=== PATIENT | female | born 1970 | race Caucasian/White ===

== ENCOUNTER 2018-07-13 12:52 | Inpatient (IN) | payer MEDICARE, OTHER ==
[2018-07-13] MEDS ORDERED: ALBUTEROL NEBULIZED 2.5 MG/3 ML INHALATION PRN (16:07)
[2018-07-13] MEDS ORDERED: NALOXONE 0.4 MG/ML 1 ML VIAL IV PRN (16:13)
--- NOTE | 2018-07-13 16:25 | P.HPIM ---
History of Present Illness Patient is a pleasant 48-year-old female came in with complaints of severe retrosternal burning sensation after eating some odynophagia along with nausea patient is barely eating anything because of her nausea and abdominal pain patient is also company of epigastric abdominal pain right upper quadrant abdominal pain had abdominal pain radiates to the back. Patient's pain is mostly burning sensation and sharp in nature severe. Patient was recently admitted to [facility] where patient was evaluated for acute coronary syndromes was subsequently discharged home. Patient apparently was treated for oral thrush as well but although patient doesn't have any evidence of thrush now. Patient was a seen in [facility] and the patient is found to have low sodium as well. Her lipase is minimally elevated. EKG essentially within normal limits troponin is not elevated. Review of Systems REVIEW OF SYSTEMS: CONSTITUTIONAL: No fever, no malaise, no fatigue. HEENT: No recent visual problems or hearing problems. Denied any sore throat. CARDIOVASCULAR: No chest pain, orthopnea, PND, no palpitations, no syncope. PULMONARY: No shortness of breath, no cough, no hemoptysis. GASTROINTESTINAL: As mentioned in in HPI NEUROLOGICAL: No headaches, no weakness, no numbness. HEMATOLOGICAL: Denies any bleeding or petechiae. GENITOURINARY: Denies any burning micturition, frequency, or urgency. MUSCULOSKELETAL/RHEUMATOLOGICAL: Denies any joint pain, swelling, or any muscle pain. ENDOCRINE: Denies any polyuria or polydipsia. The rest of the 14-point review of systems is negative. Past Medical History Past Medical History: Asthma, COPD, GERD/Reflux, GI Bleed, Hypertension, Thyroid Disorder Additional Past Medical History / Comment(s): lung scarring;home 02 2 liters prn , lt eye cataract History of Any Multi-Drug Resistant Organisms: None Reported Past Surgical History: Section, Tonsillectomy, Tubal Ligation Additional Past Surgical History / Comment(s): 1989,1991; sinus surgery; right cataract repair Past Anesthesia/Blood Transfusion Reactions: No Reported Reaction Past Psychological History: Anxiety, Depression, Schizophrenia Additional Psychological History / Comment(s): pt stated she lives with her sister.uses cane as needed,currently weak and recent fall.also has o2 and nebulizer Smoking Status: Current every day smoker Past Alcohol Use History: Abuse, Daily Additional Past Alcohol Use History / Comment(s): started smoking at age 6 used to smoke 1 ppd now 6 cig per day. past etoh abuse,went to rehab 2014 and quit Past Drug Use History: Marijuana - Past Family History Father Family Medical History: Cancer Additional Family Medical History / Comment(s): LUNG Mother Family Medical History: Cancer, COPD, Hypertension Additional Family Medical History / Comment(s): heart disease, breast cancer Sister(s) Family Medical History: Cancer Additional Family Medical History / Comment(s): breast cancer Medications and Allergies Home Medications Medication Instructions Recorded Confirmed Type Primidone [Mysoline] 50 mg PO DAILY 02/08/15 07/13/18 History amLODIPine [Norvasc] 5 mg PO DAILY 02/08/15 07/13/18 History Ipratropium-Albuterol Nebulize 3 ml INHALATION RT-QID 07/13/15 07/13/18 History [Duoneb 0.5 mg-3 mg/3 ml Soln] Montelukast [Singulair] 10 mg PO HS 07/13/15 07/13/18 History Acetaminophen Tab [Tylenol Tab] 1,000 mg PO Q6HR PRN 07/13/18 07/13/18 History Albuterol Inhaler [Ventolin Hfa 1 - 2 puff INHALATION RT-Q6H PRN 07/13/18 History Inhaler] Citalopram Hydrobromide [CeleXA] 40 mg PO DAILY 07/13/18 07/13/18 History Levothyroxine Sodium [Synthroid] 100 mcg PO DAILY 07/13/18 07/13/18 History Lidocaine Viscous 2% [Xylocaine 15 ml MUCOUS MEM Q3H 07/13/18 07/13/18 History Viscous] Lisinopril [Zestril] 20 mg PO DAILY 07/13/18 07/13/18 History Magnesium Oxide [Mag-Ox] 400 mg PO DAILY 07/13/18 07/13/18 History Ondansetron Odt [Zofran Odt] 8 mg PO BID 07/13/18 07/13/18 History Pantoprazole Sodium [Protonix] 40 mg PO DAILY 07/13/18 07/13/18 History Primidone [Mysoline] 100 mg PO HS 07/13/18 07/13/18 History QUEtiapine [SEROquel] 400 mg PO BID@1800,2200 07/13/18 07/13/18 History predniSONE See Taper PO DAILY 07/13/18 07/13/18 History Allergies Allergy/AdvReac Type Severity Reaction Status Date / Time metronidazole [From Flagyl] Allergy Unknown Verified 07/13/18 15:50 Physical Exam Vitals: Vital Signs Temp Pulse Resp BP Pulse Ox 07/13/18 16:01 97.4 F L 70 15 130/84 97 PHYSICAL EXAMINATION: GENERAL: The patient is alert and oriented x3, not in any acute distress. Well developed, well nourished. HEENT: Pupils are round and equally reacting to light. EOMI. No scleral icterus. No conjunctival pallor. Normocephalic, atraumatic. No pharyngeal erythema. No thyromegaly. CARDIOVASCULAR: S1 and S2 present. No murmurs, rubs, or gallops. PULMONARY: Chest is clear to auscultation, no wheezing or crackles. ABDOMEN: Soft, mild epigastric abdominal tenderness mild upper quadrant abdominal tenderness no rebound or rigidity, Bergman's sign negative. MUSCULOSKELETAL: No joint swelling or deformity. EXTREMITIES: No cyanosis, clubbing, or pedal edema. NEUROLOGICAL: Gross neurological examination did not reveal any focal deficits. SKIN: No rashes. Assessment and Plan Plan: -Abdominal pain mostly secondary to peptic ulcer disease other differential being cholelithiasis. Patient doesn't have any fever I'll obtain ultrasound of the abdomen since her pain radiates to the back. Patient was recently ruled out acute coronary syndromes. Surgery was consulted patient will be started on Protonix. Because of odynophagia symptoms and recent oral thrush of also start her on flucanazole which will be discontinued if the patient doesn't have any fungal esophagitis and upper GI endoscopy. 1 hyponatremia probably secondary to poor peripheral intake continue with IV fluids and if that doesn't improve will further evaluate for other causes of hyponatremia . -Hypertension -COPD not in acute exacerbation counseling or peptic ulcer disease of discontinue her systemic steroids patient has been on systemic steroids for long period of time patient is on low-dose of steroids now. -Hypothyroidism -ST esophageal reflux disease -Schizophrenia/depression: Continue her home medications. -Continue nicotine use: Counseling was provided. history of marijuana use in the past history of all call abuse in the past 20 years ago
[2018-07-13] MEDS ORDERED: FLUCONAZOLE 100 MG TAB PO SCH (17:00)
[2018-07-13] MEDS: SODIUM CHLORIDE 0.9% 1,000 ML IV SCH (17:18)
[2018-07-13] MEDS: QUEtiapine 400 MG TAB PO SCH ×2 (18:01→21:20)
[2018-07-13] MEDS: ACETAMINOPHEN TAB 500 MG TAB PO PRN (18:01)
[2018-07-13] MEDS: IPRATROPIUM-ALBUTEROL 3 ML NEB INHALATION SCH (19:49)
--- NOTE | 2018-07-13 20:08 | US ---
EXAMINATION TYPE: US gallbladder DATE OF EXAM: 07/13/2018 COMPARISON: 08/09/2014 CLINICAL HISTORY: elevated liver enzymes. Vomiting. EXAM MEASUREMENTS: Liver Length: 16.7 cm Gallbladder Wall: 0.33 cm CBD: 0.40 cm Right Kidney: 9.0 x 3.6 x 3.3 cm Pancreas: Duct visualized measuring 0.18cm. Liver: wnl Gallbladder: Hypoechoic areas seen suggestive of sludge. Evidence for sonographic Bergman's sign: No CBD: wnl Right Kidney: wnl Appears to be sludge in the gallbladder. IMPRESSION: Echogenic bile. No gallstones or dilated ducts. This is a change compared to old exam.
[2018-07-13] MEDS: PRIMIDONE 50 MG TAB PO SCH (21:20)
[2018-07-13] MEDS: MONTELUKAST 10 MG TAB PO SCH (21:20)
[2018-07-13] MEDS: PANTOPRAZOLE 40 MG/10 ML VIAL IVP SCH (21:21)
[2018-07-14] MEDS: LEVOTHYROXINE 100 MCG TAB PO SCH (05:47)
[2018-07-14] MEDS: SODIUM CHLORIDE 0.9% 1,000 ML IV SCH ×3 (05:48→21:22)
[2018-07-14] MEDS: IPRATROPIUM-ALBUTEROL 3 ML NEB INHALATION SCH ×4 (07:11→19:20)
[2018-07-14 07:57] LABS: Anisocytosis Moderate; HCT 32.5 % (34.0-46.0); HGB 10.1 gm/dL (11.4-16.0); MCH 33.6 pg (25.0-35.0); MCHC 31.2 g/dL (31.0-37.0); MCV 107.9 fL (80.0-100.0); Macrocytosis Marked; Mean Platelet Volume 6.5; Platelet Count 399 k/uL (150-450); RBC 3.01 m/uL (3.80-5.40); RDW 20.5 % (11.5-15.5); WBC 6.8 k/uL (3.8-10.6)
[2018-07-14 08:10] LABS: Anion Gap 2 mmol/L; Blood Urea Nitrogen 9 mg/dL (7-17); Calcium 8.6 mg/dL (8.4-10.2); Carbon Dioxide 25 mmol/L (22-30); Chloride 111 mmol/L (98-107); Glucose 63 mg/dL (74-99); Potassium 4.4 mmol/L (3.5-5.1); Sodium 138 mmol/L (137-145)
[2018-07-14] MEDS: ACETAMINOPHEN TAB 500 MG TAB PO PRN ×2 (09:40→19:16)
[2018-07-14] MEDS: amLODIPine 5 MG TAB PO SCH (09:41)
[2018-07-14] MEDS: MAGNESIUM OXIDE 400 MG TAB PO SCH (09:42)
[2018-07-14] MEDS: PRIMIDONE 50 MG TAB PO SCH ×2 (09:43→21:33)
[2018-07-14] MEDS: PANTOPRAZOLE 40 MG/10 ML VIAL IVP SCH ×2 (09:43→21:32)
[2018-07-14] MEDS ORDERED: ACETAMINOPHEN IV (For NPO) 1,000 MG in EMPTY BAG 1 BAG IVPB PRN (10:02)
[2018-07-14] MEDS: CITALOPRAM HYDROBROMIDE 20 MG TAB PO SCH (11:00)
--- NOTE | 2018-07-14 12:40 | P.DS ---
Providers Date of admission: 07/13/18 15:17 Attending physician: Antonieta Mcclendon Consults: 07/13/18 16:11 Consult Physician Routine Consulting Provider: Erik Mohamud Consult Reason/Comments: gastritis/ cholelithiasis Do you want consulting provider notified?: Yes Placement Type Exists?: Yes Primary care physician: Stated None Hospital Course: Patient given epigastric abdominal pain possibly secondary to gastritis. Surgery was consulted for possible upper GI endoscopy patient gets an upper GI endoscopy depending on the results patient probably will be discharged today with the twice a day of proton pump inhibitor. I'm discontinued and prednisone. My suspicion is low for esophageal candidiasis because of which I will not start her on any antifungals. Patient doesn't have any old pressure at this time. Patient is complaining of chest pain which is [place] skeletal in nature asked her to use Tylenol for that. PHYSICAL EXAMINATION: GENERAL: The patient is alert and oriented x3, not in any acute distress. Well developed, well nourished. HEENT: Pupils are round and equally reacting to light. EOMI. No scleral icterus. No conjunctival pallor. Normocephalic, atraumatic. No pharyngeal erythema. No thyromegaly. CARDIOVASCULAR: S1 and S2 present. No murmurs, rubs, or gallops. PULMONARY: Chest is clear to auscultation, no wheezing or crackles. ABDOMEN: Soft, nontender, nondistended, normoactive bowel sounds. No palpable organomegaly. MUSCULOSKELETAL: No joint swelling or deformity. EXTREMITIES: No cyanosis, clubbing, or pedal edema. NEUROLOGICAL: Gross neurological examination did not reveal any focal deficits. SKIN: No rashes. Assessment and Plan Plan: -Abdominal pain mostly secondary to peptic ulcer disease ultrasound of the abdomen did not show any cholelithiasis or cholecystitis 1 hyponatremia hypervolemic hyponatremia which improved and facet present sodium is 138 -Hypertension -COPD not in acute exacerbation counseling or peptic ulcer disease of discontinue her systemic steroids -Hypothyroidism -ST esophageal reflux disease -Schizophrenia/depression: Continue her home medications. -Continue nicotine use: Counseling was provided. history of marijuana use in the past history of all call abuse in the past 20 years ago Plan - Discharge Summary Discharge Rx Participant: No New Discharge Prescriptions: Continue Primidone [Mysoline] 50 mg PO DAILY amLODIPine [Norvasc] 5 mg PO DAILY Montelukast [Singulair] 10 mg PO HS Ipratropium-Albuterol Nebulize [Duoneb 0.5 mg-3 mg/3 ml Soln] 3 ml INHALATION RT-QID Lidocaine Viscous 2% [Xylocaine Viscous] 15 ml MUCOUS MEM Q3H Albuterol Inhaler [Ventolin Hfa Inhaler] 1 - 2 puff INHALATION RT-Q6H PRN PRN Reason: Shortness Of Breath Acetaminophen Tab [Tylenol] 1,000 mg PO Q6HR PRN PRN Reason: Pain Or Fever > 100.5 QUEtiapine [SEROquel] 400 mg PO BID@1800,2200 Ondansetron Odt [Zofran ODT] 8 mg PO BID Magnesium Oxide [Mag-Ox] 400 mg PO DAILY Lisinopril [Zestril] 20 mg PO DAILY Primidone [Mysoline] 100 mg PO HS Levothyroxine Sodium [Synthroid] 100 mcg PO DAILY Citalopram Hydrobromide [CeleXA] 40 mg PO DAILY Changed Pantoprazole Sodium [Protonix] 40 mg PO BID #30 tablet.dr Discontinued predniSONE See Taper PO DAILY Discharge Medication List Primidone [Mysoline] 50 mg PO DAILY 02/08/15 [History] amLODIPine [Norvasc] 5 mg PO DAILY 02/08/15 [History] Ipratropium-Albuterol Nebulize [Duoneb 0.5 mg-3 mg/3 ml Soln] 3 ml INHALATION RT -QID 07/13/15 [History] Montelukast [Singulair] 10 mg PO HS 07/13/15 [History] Acetaminophen Tab [Tylenol] 1,000 mg PO Q6HR PRN 07/13/18 [History] Albuterol Inhaler [Ventolin Hfa Inhaler] 1 - 2 puff INHALATION RT-Q6H PRN [History] Citalopram Hydrobromide [CeleXA] 40 mg PO DAILY 07/13/18 [History] Levothyroxine Sodium [Synthroid] 100 mcg PO DAILY 07/13/18 [History] Lidocaine Viscous 2% [Xylocaine Viscous] 15 ml MUCOUS MEM Q3H 07/13/18 [History] Lisinopril [Zestril] 20 mg PO DAILY 07/13/18 [History] Magnesium Oxide [Mag-Ox] 400 mg PO DAILY 07/13/18 [History] Ondansetron Odt [Zofran ODT] 8 mg PO BID 07/13/18 [History] Primidone [Mysoline] 100 mg PO HS 07/13/18 [History] QUEtiapine [SEROquel] 400 mg PO BID@1800,2200 07/13/18 [History] Pantoprazole Sodium [Protonix] 40 mg PO BID #30 tablet. 07/14/18 [Rx] Discharge Disposition: HOME SELF-CARE
[2018-07-14 14:06] VITALS: BMI 18.8
--- NOTE | 2018-07-14 15:38 | P.GSCN ---
History of Present Illness Consult date: 07/14/18 Reason for Consult: GERD, nausea History of present illness: This a 48-year-old female who's had complaints of GERD and nausea. She states that she experiences some retrosternal burning when eating. She's also had some mild epigastric pain. Past Medical History Past Medical History: Asthma, COPD, GERD/Reflux, GI Bleed, Hypertension, Thyroid Disorder Additional Past Medical History / Comment(s): lung scarring;home 02 2 liters prn , lt eye cataract History of Any Multi-Drug Resistant Organisms: None Reported Past Surgical History: Section, Tonsillectomy, Tubal Ligation Additional Past Surgical History / Comment(s): 1989,1991; sinus surgery; right cataract repair Past Anesthesia/Blood Transfusion Reactions: No Reported Reaction Past Psychological History: Anxiety, Depression, Schizophrenia Additional Psychological History / Comment(s): pt stated she lives with her sister.uses cane as needed,currently weak and recent fall.also has o2 and nebulizer Smoking Status: Current every day smoker Past Alcohol Use History: Abuse, Daily Additional Past Alcohol Use History / Comment(s): started smoking at age 6 used to smoke 1 ppd now 6 cig per day. past etoh abuse,went to rehab 2014 and quit Past Drug Use History: Marijuana - Past Family History Father Family Medical History: Cancer Additional Family Medical History / Comment(s): LUNG Mother Family Medical History: Cancer, COPD, Hypertension Additional Family Medical History / Comment(s): heart disease, breast cancer Sister(s) Family Medical History: Cancer Additional Family Medical History / Comment(s): breast cancer Medications and Allergies Home Medications Medication Instructions Recorded Confirmed Type Primidone [Mysoline] 50 mg PO DAILY 02/08/15 07/13/18 History amLODIPine [Norvasc] 5 mg PO DAILY 02/08/15 07/13/18 History Ipratropium-Albuterol Nebulize 3 ml INHALATION RT-QID 07/13/15 07/13/18 History [Duoneb 0.5 mg-3 mg/3 ml Soln] Montelukast [Singulair] 10 mg PO HS 07/13/15 07/13/18 History Acetaminophen Tab [Tylenol] 1,000 mg PO Q6HR PRN 07/13/18 07/13/18 History Albuterol Inhaler [Ventolin Hfa 1 - 2 puff INHALATION RT-Q6H PRN 07/13/18 History Inhaler] Citalopram Hydrobromide [CeleXA] 40 mg PO DAILY 07/13/18 07/13/18 History Levothyroxine Sodium [Synthroid] 100 mcg PO DAILY 07/13/18 07/13/18 History Lidocaine Viscous 2% [Xylocaine 15 ml MUCOUS MEM Q3H 07/13/18 07/13/18 History Viscous] Lisinopril [Zestril] 20 mg PO DAILY 07/13/18 07/13/18 History Magnesium Oxide [Mag-Ox] 400 mg PO DAILY 07/13/18 07/13/18 History Ondansetron Odt [Zofran ODT] 8 mg PO BID 07/13/18 07/13/18 History Primidone [Mysoline] 100 mg PO HS 07/13/18 07/13/18 History QUEtiapine [SEROquel] 400 mg PO BID@1800,2200 07/13/18 07/13/18 History Pantoprazole Sodium [Protonix] 40 mg PO BID #30 tablet. 07/14/18 Rx Allergies Allergy/AdvReac Type Severity Reaction Status Date / Time metronidazole [From Flagyl] Allergy Unknown Verified 07/13/18 15:50 Surgical - Exam Vital Signs Temp Pulse Resp BP Pulse Ox 97.4 F L 70 15 130/84 97 07/13/18 16:01 07/13/18 16:01 07/13/18 16:01 07/13/18 16:01 07/13/18 16:01 - General well developed, no distress - Eyes PERRL - ENT normal pinna - Neck no masses - Respiratory normal expansion - Cardiovascular Rhythm: regular - Abdomen Mild epigastric discomfort Abdomen: soft Results - Labs 07/14/18 07:20 07/14/18 07:20 Abnormal Lab Results - Last 24 Hours (Table) 07/14/18 07/14/18 Range/Units 07:20 07:20 RBC 3.01 L (3.80-5.40) m/uL Hgb 10.1 L (11.4-16.0) gm/dL Hct 32.5 L (34.0-46.0) % MCV 107.9 H (80.0-100.0) fL RDW 20.5 H (11.5-15.5) % Chloride 111 H (98-107) mmol/L Glucose 63 L (74-99) mg/dL Diabetes panel 07/14/18 Range/Units 07:20 Sodium 138 (137-145) mmol/L Potassium 4.4 (3.5-5.1) mmol/L Chloride 111 H (98-107) mmol/L Carbon Dioxide 25 (22-30) mmol/L BUN 9 (7-17) mg/dL Creatinine 0.69 (0.52-1.04) mg/dL Glucose 63 L (74-99) mg/dL Calcium 8.6 (8.4-10.2) mg/dL Calcium panel 07/14/18 Range/Units 07:20 Calcium 8.6 (8.4-10.2) mg/dL Pituitary panel 07/14/18 Range/Units 07:20 Sodium 138 (137-145) mmol/L Potassium 4.4 (3.5-5.1) mmol/L Chloride 111 H (98-107) mmol/L Carbon Dioxide 25 (22-30) mmol/L BUN 9 (7-17) mg/dL Creatinine 0.69 (0.52-1.04) mg/dL Glucose 63 L (74-99) mg/dL Calcium 8.6 (8.4-10.2) mg/dL Adrenal panel 07/14/18 Range/Units 07:20 Sodium 138 (137-145) mmol/L Potassium 4.4 (3.5-5.1) mmol/L Chloride 111 H (98-107) mmol/L Carbon Dioxide 25 (22-30) mmol/L BUN 9 (7-17) mg/dL Creatinine 0.69 (0.52-1.04) mg/dL Glucose 63 L (74-99) mg/dL Calcium 8.6 (8.4-10.2) mg/dL Assessment and Plan Assessment: GERD Epigastric pain Patient was scheduled for EGD in the a.m. We will schedule for a HIDA scan.
[2018-07-14] MEDS: QUEtiapine 400 MG TAB PO SCH ×2 (18:26→21:22)
[2018-07-14] MEDS ORDERED: ALPRAZolam 0.25 MG TAB PO PRN (21:29)
[2018-07-14] MEDS: MONTELUKAST 10 MG TAB PO SCH (21:32)
--- NOTE | 2018-07-14 22:43 | NM ---
EXAMINATION TYPE: NM hepatobiliary w CCK DATE OF EXAM: 07/14/2018 COMPARISON: Ultrasound gallbladder 07/13/2018 HISTORY: Elevated liver enzymes, vomiting TECHNIQUE: After the intravenous administration of 4.9 mCi Tc 99m Mebrofenin hepatobiliary scintigrap hy is performed. Immediate images post injection. FINDINGS: There is satisfactory initial accumulation of tracer by the liver. The gallbladder is visualized wit hin 7 minutes. The small bowel activity is noted within approximately 60 minutes. At one hour CCK was administered, patient was injected with 1.0 mcg of Kinevac, and gallbladder eject ion fraction is calculated at 70 %, in the normal range. Therefore there is no scintigraphic evidenc e of cystic or common bile duct obstruction to suggest acute cholecystitis or gallbladder dyskinesia. IMPRESSION: 1. Normal hepatobiliary transport and gallbladder ejection fraction. 2. However, at times during the study there was evidence of bile refluxing into the stomach. Noted.
[2018-07-14] MEDS: LISINOPRIL 20 MG TAB PO SCH (22:44)
[2018-07-14] MEDS: MELATONIN 3 MG TABLET PO SCH (22:44)
[2018-07-15] MEDS: IPRATROPIUM-ALBUTEROL 3 ML NEB INHALATION SCH ×4 (07:13→20:07)
[2018-07-15] MEDS: ONDANSETRON 4 MG/2 ML VIAL IVP PRN ×2 (07:51→14:12)
[2018-07-15] MEDS: PANTOPRAZOLE 40 MG/10 ML VIAL IVP SCH ×2 (07:54→20:59)
[2018-07-15] MEDS: amLODIPine 5 MG TAB PO SCH (07:55)
[2018-07-15] MEDS: LISINOPRIL 20 MG TAB PO SCH (07:55)
[2018-07-15] MEDS: LEVOTHYROXINE 100 MCG TAB PO SCH (07:55)
--- NOTE | 2018-07-15 10:24 | P.DS ---
Providers Date of admission: 07/13/18 15:17 Attending physician: Antonieta Mcclendon Consults: 07/13/18 16:11 Consult Physician Routine Consulting Provider: Erik Mohamud Consult Reason/Comments: gastritis/ cholelithiasis Do you want consulting provider notified?: Yes Placement Type Exists?: Yes Primary care physician: Stated None Hospital Course: Patient will be discharged after upper GI endoscopy unless to see him significant abnormality and upper GI endoscopy which I'm not anticipating. Please refer to my dictation of discharge summary from yesterday. PHYSICAL EXAMINATION: GENERAL: The patient is alert and oriented x3, not in any acute distress. Well developed, well nourished. HEENT: Pupils are round and equally reacting to light. EOMI. No scleral icterus. No conjunctival pallor. Normocephalic, atraumatic. No pharyngeal erythema. No thyromegaly. CARDIOVASCULAR: S1 and S2 present. No murmurs, rubs, or gallops. PULMONARY: Chest is clear to auscultation, no wheezing or crackles. ABDOMEN: Soft, nontender, nondistended, normoactive bowel sounds. No palpable organomegaly. MUSCULOSKELETAL: No joint swelling or deformity. EXTREMITIES: No cyanosis, clubbing, or pedal edema. NEUROLOGICAL: Gross neurological examination did not reveal any focal deficits. SKIN: No rashes. Plan - Discharge Summary Discharge Rx Participant: No New Discharge Prescriptions: Continue Primidone [Mysoline] 50 mg PO DAILY amLODIPine [Norvasc] 5 mg PO DAILY Montelukast [Singulair] 10 mg PO HS Ipratropium-Albuterol Nebulize [Duoneb 0.5 mg-3 mg/3 ml Soln] 3 ml INHALATION RT-QID Lidocaine Viscous 2% [Xylocaine Viscous] 15 ml MUCOUS MEM Q3H Albuterol Inhaler [Ventolin Hfa Inhaler] 1 - 2 puff INHALATION RT-Q6H PRN PRN Reason: Shortness Of Breath Acetaminophen Tab [Tylenol] 1,000 mg PO Q6HR PRN PRN Reason: Pain Or Fever > 100.5 QUEtiapine [SEROquel] 400 mg PO BID@1800,2200 Ondansetron Odt [Zofran ODT] 8 mg PO BID Magnesium Oxide [Mag-Ox] 400 mg PO DAILY Lisinopril [Zestril] 20 mg PO DAILY Primidone [Mysoline] 100 mg PO HS Levothyroxine Sodium [Synthroid] 100 mcg PO DAILY Citalopram Hydrobromide [CeleXA] 40 mg PO DAILY Changed Pantoprazole Sodium [Protonix] 40 mg PO BID #30 tablet. Discontinued predniSONE See Taper PO DAILY Discharge Medication List Primidone [Mysoline] 50 mg PO DAILY 02/08/15 [History] amLODIPine [Norvasc] 5 mg PO DAILY 02/08/15 [History] Ipratropium-Albuterol Nebulize [Duoneb 0.5 mg-3 mg/3 ml Soln] 3 ml INHALATION RT -QID 07/13/15 [History] Montelukast [Singulair] 10 mg PO HS 07/13/15 [History] Acetaminophen Tab [Tylenol] 1,000 mg PO Q6HR PRN 07/13/18 [History] Albuterol Inhaler [Ventolin Hfa Inhaler] 1 - 2 puff INHALATION RT-Q6H PRN [History] Citalopram Hydrobromide [CeleXA] 40 mg PO DAILY 07/13/18 [History] Levothyroxine Sodium [Synthroid] 100 mcg PO DAILY 07/13/18 [History] Lidocaine Viscous 2% [Xylocaine Viscous] 15 ml MUCOUS MEM Q3H 07/13/18 [History] Lisinopril [Zestril] 20 mg PO DAILY 07/13/18 [History] Magnesium Oxide [Mag-Ox] 400 mg PO DAILY 07/13/18 [History] Ondansetron Odt [Zofran ODT] 8 mg PO BID 07/13/18 [History] Primidone [Mysoline] 100 mg PO HS 07/13/18 [History] QUEtiapine [SEROquel] 400 mg PO BID@1800,2200 07/13/18 [History] Pantoprazole Sodium [Protonix] 40 mg PO BID #30 tablet. 07/14/18 [Rx] Discharge Disposition: HOME SELF-CARE
--- NOTE | 2018-07-15 11:00 | P.PN ---
Progress Note - Text Progress Note Date: 07/15/18 48-year-old female sitting up in bed scheduled today for an EGD hydroscan complete EF 70%. Patient reports experiencing hipcups. Appears in no acute distress. We'll await the finding of the EGD. Anticipate discharge no acute findings The above impression and plan of care have been discussed and directed by signing physician. Hilda Cordero nurse practitioner acting as scribe for signing physician.
[2018-07-15] MEDS: SODIUM CHLORIDE 0.9% 1,000 ML IV SCH ×2 (12:24→14:14)
[2018-07-15] MEDS ORDERED: LIDOCAINE 1% INJ 10MG/ML (20 ML MDV) ONE (13:23)
[2018-07-15] MEDS ORDERED: PROPOFOL 10 MG/ML 20 ML VIAL IV ONE (13:23)
[2018-07-15] MEDS ORDERED: IV FLUID CONTINUATION 1,000 ML IV ONE (13:36)
--- NOTE | 2018-07-15 13:37 | P.OP ---
Date of Procedure: 07/15/18 Preoperative Diagnosis: GERD, nausea Postoperative Diagnosis: Mild antral gastritis Small hiatal hernia [place] esophagitis Procedure(s) Performed: EGD Anesthesia: MAC Surgeon: Erik Mohamud Pathology: other (Antrum, esophagus) Condition: stable Disposition: PACU Description of Procedure: The patient's placed on the endoscopy table in the lateral position. She received IV sedation. The gastroscope placed oropharynx passed in this esophagus and into the stomach. Scope was then placed through the pylorus. The first and second portion duodenum appeared normal. Scope was then brought back and the antrum and this was minimal inflamed. A biopsies performed. The scope was then retroflexed the patient had a small hiatal hernia. The GE junction was at 38 cm. The entire esophagus appeared to have a [place] esophagitis appearance. A biopsy esophagus was performed. Scope was withdrawn for patient.
[2018-07-15] MEDS ORDERED: NYSTATIN 100,000 UNIT/ML SUSP 500,000 UNIT/5 ML CUP PO SCH (13:45)
[2018-07-15] MEDS: CITALOPRAM HYDROBROMIDE 20 MG TAB PO SCH (14:37)
[2018-07-15] MEDS: MAGNESIUM OXIDE 400 MG TAB PO SCH (14:37)
[2018-07-15] MEDS: PRIMIDONE 50 MG TAB PO SCH ×2 (14:37→20:59)
[2018-07-15] MEDS ORDERED: hydrALAZINE HCL 25 MG TAB PO PRN (14:43)
[2018-07-15] MEDS: ITRACONAZOLE ORAL SUSP 1,500 MG/150 ML BOTTLE PO SCH (15:28)
[2018-07-15] MEDS: ACETAMINOPHEN TAB 500 MG TAB PO PRN (17:20)
[2018-07-15] MEDS: QUEtiapine 400 MG TAB PO SCH ×2 (17:20→21:02)
[2018-07-15] MEDS: MELATONIN 3 MG TABLET PO SCH (20:58)
[2018-07-15] MEDS: MONTELUKAST 10 MG TAB PO SCH (20:58)
[2018-07-16] MEDS: SODIUM CHLORIDE 0.9% 1,000 ML IV SCH (05:24)
[2018-07-16 05:57] VITALS: RESP 18; TEMP 98
[2018-07-16] MEDS: LEVOTHYROXINE 100 MCG TAB PO SCH (06:02)
[2018-07-16] MEDS: ACETAMINOPHEN TAB 500 MG TAB PO PRN (06:58)
[2018-07-16] MEDS: IPRATROPIUM-ALBUTEROL 3 ML NEB INHALATION SCH (07:01)
[2018-07-16 08:13] VITALS: BP 134/79; PULSE 102
[2018-07-16] MEDS: ITRACONAZOLE ORAL SUSP 1,500 MG/150 ML BOTTLE PO SCH (08:19)
[2018-07-16] MEDS: PANTOPRAZOLE 40 MG/10 ML VIAL IVP SCH (08:19)
[2018-07-16] MEDS: amLODIPine 5 MG TAB PO SCH (08:19)
[2018-07-16] MEDS: CITALOPRAM HYDROBROMIDE 20 MG TAB PO SCH (08:20)
[2018-07-16] MEDS: MAGNESIUM OXIDE 400 MG TAB PO SCH (08:20)
[2018-07-16] MEDS: LISINOPRIL 20 MG TAB PO SCH (08:20)
[2018-07-16] MEDS: PRIMIDONE 50 MG TAB PO SCH (08:20)
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
--- NOTE | 2018-07-16 12:01 | P.PN ---
Progress Note - Text Progress Note Date: 07/16/18 48-year-old female who had an EGD done yesterday by Dr. sands the results reviewed with the patient. Findings Myrna esophagitis. Patient states since starting the medication there is a noted improvement. Surgical perspective patient is felt to be appropriate for discharge will see patient in a follow- up visit in the office The above impression and plan of care have been discussed and directed by signing physician. Hilda Cordero nurse practitioner acting as scribe for signing physician.
== END 2018-07-16 14:54 | disposition home or self-care (01) | DRG 369 ==
LOC: 5MS5E 15:17
PROVIDERS: ADMIT Hospitalist; ATTEND Hospitalist
PROC: 0DB78ZX Excision of Stomach, Pylorus, Via Natural or Artificial Opening Endoscopic, Diagnostic (ICD-10-PCS; principal; 2018-07-15 07:30)
DX: B37.81 Candidal esophagitis (principal); E87.1 Hypo-osmolality and hyponatremia; E03.9 Hypothyroidism, unspecified; E87.70 Fluid overload, unspecified; F17.200 Nicotine dependence, unspecified, uncomplicated; F20.9 Schizophrenia, unspecified; F32.9 Major depressive disorder, single episode, unspecified; F41.9 Anxiety disorder, unspecified; I10 Essential (primary) hypertension; J44.9 Chronic obstructive pulmonary disease, unspecified; K21.0 Gastro-esophageal reflux disease with esophagitis; K29.60 Other gastritis without bleeding; K44.9 Diaphragmatic hernia without obstruction or gangrene; Z79.899 Other long term (current) drug therapy; Z80.3 Family history of malignant neoplasm of breast; Z82.49 Family history of ischemic heart disease and other diseases of the circulatory system; Z82.5 Family history of asthma and other chronic lower respiratory diseases; Z79.890 Hormone replacement therapy; Z88.8 Allergy status to other drugs, medicaments and biological substances; Z71.6 Tobacco abuse counseling; Z98.51 Tubal ligation status; Z98.41 Cataract extraction status, right eye
CPT/HCPCS: 43239; 76705; 78227; 80048; 85027; 88305; 88312; 88341; 88342; 93005; 94640

== ENCOUNTER 2018-08-31 10:13 | Day surgery (SDC) | payer MEDICARE, OTHER ==
[2018-08-28 10:36] VITALS: BMI 19.7
[~2018-08-31 10:13] MED LIST: LACTATED RINGERS 1,000 ML IV SCH
[2018-08-31 10:28] VITALS: TEMP 99
[2018-08-31] MEDS ORDERED: ALBUTEROL NEBULIZED 2.5 MG/3 ML INHALATION STA (10:32)
[2018-08-31] MEDS ORDERED: LIDOCAINE 1% 20 ML VIAL (10MG/ML) FOR IV START INTRADERMA ONE (10:55)
[2018-08-31] MEDS ORDERED: ENALAPRILAT 1.25 MG/ML 1 ML VIAL IVP ONE (10:58)
[2018-08-31 11:05] VITALS: RESP 20
[2018-08-31] MEDS ORDERED: PROPOFOL 10 MG/ML 20 ML VIAL IV ONE (11:21)
[2018-08-31] MEDS ORDERED: LIDOCAINE 1% INJ 10MG/ML (20 ML MDV) ONE (11:21)
--- NOTE | 2018-08-31 11:23 | P.GSHP ---
History of Present Illness H&P Date: 08/31/18 GERD Past Medical History Past Medical History: Asthma, COPD, GERD/Reflux, GI Bleed, Hypertension, Thyroid Disorder Additional Past Medical History / Comment(s): lung scarring;home 02 2 liters prn , lt eye cataract History of Any Multi-Drug Resistant Organisms: None Reported Past Surgical History: Section, Tonsillectomy, Tubal Ligation Additional Past Surgical History / Comment(s): sinus surgery; right cataract repair Past Anesthesia/Blood Transfusion Reactions: No Reported Reaction Smoking Status: Current every day smoker - Past Family History Father Family Medical History: Cancer Additional Family Medical History / Comment(s): LUNG Mother Family Medical History: Cancer, COPD, Hypertension Additional Family Medical History / Comment(s): heart disease, breast cancer Sister(s) Family Medical History: Cancer Additional Family Medical History / Comment(s): breast cancer Medications and Allergies Home Medications Medication Instructions Recorded Confirmed Type Primidone [Mysoline] 50 mg PO DAILY 02/08/15 08/28/18 History amLODIPine [Norvasc] 5 mg PO DAILY 02/08/15 08/28/18 History Ipratropium-Albuterol Nebulize 3 ml INHALATION RT-QID PRN 07/13/15 08/28/18 History [Duoneb 0.5 mg-3 mg/3 ml Soln] Montelukast [Singulair] 10 mg PO HS PRN 07/13/15 08/28/18 History Albuterol Inhaler [Ventolin Hfa 1 - 2 puff INHALATION RT-Q6H PRN 07/13/18 History Inhaler] Citalopram Hydrobromide [CeleXA] 40 mg PO DAILY 07/13/18 08/28/18 History Levothyroxine Sodium [Synthroid] 100 mcg PO DAILY 07/13/18 08/28/18 History Magnesium Oxide [Mag-Ox] 400 mg PO DAILY 07/13/18 08/28/18 History Primidone [Mysoline] 100 mg PO HS 07/13/18 08/28/18 History QUEtiapine [SEROquel] 400 mg PO BID@1800,2200 07/13/18 08/28/18 History Pantoprazole Sodium [Protonix] 40 mg PO DAILY 08/20/18 08/28/18 History Acetaminophen [Tylenol Extra 500 mg PO Q4H PRN 08/28/18 08/28/18 History Strength] Folic Acid 0.8 mg PO DAILY 08/28/18 08/28/18 History Multivitamins, Thera [Multivitamin 1 tab PO DAILY 08/28/18 08/28/18 History (formulary)] levETIRAcetam [Keppra] 500 mg PO TID 08/28/18 08/28/18 History Allergies Allergy/AdvReac Type Severity Reaction Status Date / Time metronidazole [From Flagyl] Allergy Dyspnea, Verified 08/31/18 10:39 [facility] Surgical - Exam Vital Signs Temp Pulse Resp BP Pulse Ox 99.0 F 103 H 22 202/119 92 L 08/31/18 10:24 08/31/18 10:24 08/31/18 10:24 08/31/18 10:24 08/31/18 10:24 - General well developed, no distress - Eyes PERRL - ENT normal pinna - Neck no masses - Respiratory normal expansion - Cardiovascular Rhythm: regular - Abdomen Abdomen: soft, non tender Assessment and Plan Assessment: GERD. We'll perform EGD.
--- NOTE | 2018-08-31 11:30 | P.OP ---
Date of Procedure: 08/31/18 Preoperative Diagnosis: GERD Postoperative Diagnosis: Antral gastritis Hiatal hernia Esophagitis Procedure(s) Performed: EGD Anesthesia: MAC Surgeon: Erik Mohamud Pathology: other (Antrum, esophagus) Condition: stable Disposition: PACU Description of Procedure: The patient's placed on the endoscopy table in the lateral position. She received IV sedation. The gastroscope placed oropharynx and passed in the esophagus and stomach. Scope then placed through the pylorus. The first and second portion of the duodenum appeared normal. Scope was then brought back the antrum this appeared mildly inflamed. A biopsies performed. The scope was then retroflexed and remainder stomach appeared normal. There was a hiatal hernia visualized. The GE junction was at 38 cm. The distal esophagus appeared mildly inflamed a biopsies performed. The proximal esophagus. Normal. Scope was withdrawn for patient.
[2018-08-31 12:01] VITALS: PULSE 89
[2018-08-31 12:38] VITALS: BP 169/101
== END 2018-08-31 12:46 | disposition home or self-care (01) ==
LOC: ORWHC2ENDO 10:13
PROVIDERS: ATTEND Surgery
DX: K31.9 Disease of stomach and duodenum, unspecified (principal); K44.9 Diaphragmatic hernia without obstruction or gangrene; K21.0 Gastro-esophageal reflux disease with esophagitis; J44.9 Chronic obstructive pulmonary disease, unspecified; I10 Essential (primary) hypertension; E07.9 Disorder of thyroid, unspecified; F41.9 Anxiety disorder, unspecified; F32.9 Major depressive disorder, single episode, unspecified; F20.9 Schizophrenia, unspecified; F17.210 Nicotine dependence, cigarettes, uncomplicated; Z99.81 Dependence on supplemental oxygen; Z79.890 Hormone replacement therapy; Z79.899 Other long term (current) drug therapy; Z88.8 Allergy status to other drugs, medicaments and biological substances; Z98.51 Tubal ligation status; Z87.19 Personal history of other diseases of the digestive system
CPT/HCPCS: 94640; 88305; 43239; J2001; J2704

== ENCOUNTER → 2021-09-10 | Outpatient (CLI) | payer MEDICARE, OTHER ==
--- NOTE | 2021-09-11 02:52 | MR ---
EXAMINATION TYPE: MR brain wo/w con DATE OF EXAM: 09/10/2021 COMPARISON: None HISTORY: Repeated falls. CONTRAST: Standard multiplanar, multisequence MRI departmental protocol utilizing 4.5 mL intravenous gadolinium contrast. Ventricles have fairly normal size. There is no mass effect nor midline shift. There is no sign of in tracranial hemorrhage. Diffusion images show no sign of an acute infarct. Brainstem is intact. Corpus callosum is intact. Croft-white matter structures have fairly normal signa l pattern. There is no sign of cerebral edema. There is no evidence of orbital mass. Sella turcica ap pears normal. There is no evidence of posterior fossa mass. Cerebellum appears normal. There is no ev idence of cerebellopontine angle mass. IMPRESSION: Negative MR scan of the brain. I do not see a cause for the patient's symptoms.
== END | disposition home or self-care (01) ==
LOC: RADMRIMAIN 18:24
PROVIDERS: ATTEND Nurse Practitioner Family
DX: R29.6 Repeated falls (principal)
CPT/HCPCS: 70553; A9585